=== PATIENT | female | born 1995 | race Caucasian/White ===

== ENCOUNTER 2017-12-22 19:24 | Emergency (ER) | payer BC, SELFPAY ==
[2017-12-22 19:29] VITALS: BP 121/81; PULSE 71; RESP 16; TEMP 36.9; O2SAT 100
--- NOTE | 2017-12-22 19:43 | DI.REPORT_ITS ---
SYMPTOM/DIAGNOSIS: TRAUMA RIGHT CLAVICLE: 12/22 Two views were obtained. No bony abnormality seen.
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
[2017-12-22] MEDS: Acetaminophen 500 MG TAB 1000 MG PO (19:51)
[2017-12-22] MEDS: Ibuprofen 600 MG TAB PO (19:51)
--- NOTE | 2017-12-22 20:10 | DI.VRAD_ITS ---
EXAM: XR Right Clavicle Complete, 2 or More Views CLINICAL HISTORY: 22 years old, female; Pain; Shoulder; Right TECHNIQUE: Frontal and lordotic views of the right clavicle. COMPARISON: No relevant prior studies available. FINDINGS: Bones/joints: Unremarkable. No acute fracture. No dislocation. Soft tissues: Unremarkable. IMPRESSION: Normal right clavicle x-rays. Dictated and Authenticated by: Marcelino Luong MD. Ordering:PRASANTH ARAGON MD
== END 2017-12-22 20:20 | disposition home or self-care (01) ==
PROVIDERS: Emergency Provider Emergency Medicine; PCP Emergency Medicine
DX: S40.011A Contusion of right shoulder, initial encounter (principal); V17.0XXA Pedal cycle driver injured in collision with fixed or stationary object in nontraffic accident, initial encounter; Y93.55 Activity, bike riding
CPT/HCPCS: 81025; 99284; 73000; 99283

== ENCOUNTER 2018-04-22 11:06 | Outpatient (CLI) | payer BC, SELFPAY ==
--- NOTE | 2018-04-22 09:45 | DI.RAD_ITS ---
SYMPTOM/DIAGNOSIS: RT KNEE PAIN, WORSENING PAIN S83.511D RIGHT KNEE: No fracture or joint effusion is seen. The joint spaces are well maintained. IMPRESSION: Negative right knee.
== END 2018-04-22 11:26 ==
PROVIDERS: PCP Emergency Medicine; Visit Provider Nurse Practitioner Family
DX: M25.561 Pain in right knee (principal)
CPT/HCPCS: 73562

== ENCOUNTER 2018-06-14 07:43 | Outpatient (CLI) | payer BC, SELFPAY ==
--- NOTE | 2018-06-14 08:00 | DI.RAD_ITS ---
SYMPTOMS/DIAGNOSIS: WRIST INJURY, S69.90XA RIGHT WRIST: Comparison is made with right hand dated October,. No fracture or dislocation is seen. The scaphoid view shows no evidence of a scaphoid fracture. IMPRESSION: Negative right wrist.
== END 2018-06-14 08:03 ==
PROVIDERS: PCP Emergency Medicine; Visit Provider Internal Medicine
DX: M25.531 Pain in right wrist (principal); S69.91XA Unspecified injury of right wrist, hand and finger(s), initial encounter
CPT/HCPCS: 73110

== ENCOUNTER 2018-10-18 17:17 | Outpatient (CLI) | payer BC, SELFPAY ==
--- NOTE | 2018-10-18 15:15 | DI.RAD_ITS ---
SYMPTOMS/DIAGNOSIS: RIGHT SHOULDER INJURY S/P FALL, S49.91XA, INCREASING PAIN X 2 DAYS EXAMINATION OF THE RIGHT SHOULDER: There is no evidence of a fracture or dislocation.
== END 2018-10-18 17:37 ==
PROVIDERS: PCP Emergency Medicine; Visit Provider Family Medicine
DX: S49.91XA Unspecified injury of right shoulder and upper arm, initial encounter (principal)
CPT/HCPCS: 73030

== ENCOUNTER 2019-02-13 01:14 | Outpatient (CLI) | payer OTHER, SELFPAY ==
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
== END 2019-02-13 01:34 ==
PROVIDERS: PCP Emergency Medicine; Visit Provider Nurse Practitioner Family
DX: S69.91XA Unspecified injury of right wrist, hand and finger(s), initial encounter (principal)
CPT/HCPCS: 73130

== ENCOUNTER 2019-03-20 19:08 | Outpatient (REF) | payer OTHER, SELFPAY | END 2019-03-20 19:28 | LOC: LBN 19:08 | PROVIDERS: PCP Emergency Medicine; Visit Provider Family Medicine | DX: J02.9 Acute pharyngitis, unspecified (principal) | CPT/HCPCS: 87070 ==

== ENCOUNTER 2019-03-23 10:30 | Emergency (ER) | payer OTHER, SELFPAY ==
[2019-03-23 10:33] VITALS: BP 120/71; PULSE 70; RESP 16; TEMP 37.1; O2SAT 100
--- NOTE | 2019-03-23 11:14 | ED.GENADUL_ITS ---
Discharge Plan Disposition Patient Disposition: HOME Condition: Good Discharge Details Chief Complaint: EarProblem Clinical Impression: Otitis media Primary Care Provider: Roland Pinto ED Provider: Jeannie Alvarez Home Meds and New Rx's Prescriptions: New amoxicillin 500 mg capsule 500 mg PO TID Qty: 30 RF: 0 No Action Mirena 20 mcg/24 hr (5 years) intrauterine device 1 insert IY ONCE RF: 0 ibuprofen 200 MG tablet 400 mg PO PRN RF: 0 lorazepam 0.5 MG tablet 0.5 mg PO daily prn MDD 1.0 mg Qty: 30 RF: 0 Discharge Instructions Instructions: Otitis Media (ED) Additional Instructions: Drink plenty of fluids. Use motrin or tylenol for aches and fever if needed Use antibiotic as prescribed. Increase vitamin C. If not improved in the next 3 to 5 days have reevaluation with primary care doctor. return for any worsening, concerns or alarming symptoms sooner if needed Medical Decision Making Very pleasant 23-year-old patient who presents for complaints of ear pain after 1 week of viral symptoms. Onset ear pain last night. Patient denies any obvious drainage. Denies fevers or chills. Nasal congestion present, improving sore throat throughout the week. No associated voice change or trismus. Patient reports cough without associated difficulty breathing shortness of breath or wheezing. Breath sounds are clear. On exam patient has a left-sided otitis media. Patient denies any associated abdominal pain. Discussed possibility of mono however patient feels very unlikely that she has mono and declines testing at this time would prefer antibiotic treatment and reevaluation if not improving. Conservative treatments discussed. Patient agrees with plan of care. The patient was stable and requested discharge. Prior to discharge, my usual and customary return precautions were reviewed with the patient - this included follow-up instructions and reasons to return to the Emergency Department if conditions worsens, does not improve as expected, or other new concerns arise. HPI General Date/Time Provider Initiated Documentation: 03/23/19 10:46 . HPI Narrative: 23-year-old very pleasant patient presents to the emergency room for complaints of left ear pain which began last night when sleeping. Patient reports 1 week of viral symptoms specifically nasal congestion, sore throat and mild cough. Patient reports throat pain is improving. Patient with persistent nasal congestion but denies associated sinus pain or pressure. Patient reports ear pain is worse when laying flat or when leaning forward. Patient denies associated dizziness. Patient denies nausea, vomiting. She does report mild loose stools but no associated abdominal pain. Patient reports mild cough which is nonproductive. No associated difficulty breathing shortness of breath or wheezing. Denies measured fever or chills Related Data Home Medications Medication Instructions Recorded Confirmed ibuprofen 400 mg PO PRN tab-cap 04/04/14 03/23/19 lorazepam 0.5 mg PO daily prn #30 tab-cap 08/17/17 03/23/19 MDD 1.0 mg levonorgestrel 20 mcg/24 hours (5 1 insert IY ONCE 04/05/18 03/23/19 yrs) 52 mg intrauterine device amoxicillin 500 mg PO TID #30 cap 03/23/19 Previous Rx's Medication Instructions Recorded lorazepam 0.5 mg PO daily prn #30 tab-cap 08/17/17 MDD 1.0 mg amoxicillin 500 mg PO TID #30 cap 03/23/19 Allergies Allergy/AdvReac Type Severity Reaction Status Date / Time No Known Allergies Allergy Verified 03/23/19 10:39 General Stated Complaint: EarProblem [place]ROE: 4 Review of Systems All systems reviewed & are unremarkable except as noted in HPI and below Constitutional Constitutional: Denies chills, Reports fatigue, Denies fever(s), Reports headache(s) and Denies malaise ENT Ears, Nose, Mouth, and Throat: Reports otalgia, Reports headache(s), Reports nasal congestion, Reports nasal discharge, Denies sinus pain, Denies sinus pressure, Reports sore throat and Denies throat swelling Respiratory Respiratory: Reports cough, Denies pain on inspiration, Denies pain with cough and Denies wheezing Gastrointestinal Gastrointestinal: Denies abdominal pain, Reports diarrhea, Denies nausea and Denies vomiting Neurologic Neurologic: Reports headache(s) Endocrine Endocrine: Reports fatigue Allergic/Immunologic Allergic/Immunologic: Denies throat swelling and Denies wheezing [facility] Social History Smoking/Tobacco Use Status: Never Alcohol Intake: current Alcohol Intake frequency: holidays/special occasions only Alcohol type: beer Drug use: Never Do you feel safe at home: Yes Do you feel safe in your relationship?: Yes Exam Narrative Exam Narrative: CONST: Healthy appearing patient, in no acute distress. Well hydrated. Alert and alert. HENMT: Head nomocephalic, normal to inspection. Atraumatic. Hearing grossly normal. External ear canal no erythema or swelling. TM normal on the right. Left TM with bulging, effusion and erythema. Nose normal to inspection. No rhinnorhea. Normal facial exam. Oral mucosa normal. Tounge normal. Dentition normal. Erythema posterior oropharynx. Mild tonsillar exudate. Uvula midline. EYES: General normal appearance. Alignment normal. Eyelids normal. Conjunctiva normal. Sclera normal. PERRL. NECK: Normal visual inspection. FROM. Cervical lymphadenopathy. Trachea midline. No Midline tenderness. CHEST: Normal insepection of the chest. RESP: Normal respiratory effort. Speaking full sentences. No cough. No wheezing. No retractions. Clear to auscaltation. Breath sound equal and present bilaterally. CARDIO: No JVD. Normal PMI. Regular Rate. Regular Rhythm. Normal peripheral pulses. Course Vital Signs Vital signs: Vital Signs Temperature 37.1 C 03/23/19 10:33 Pulse 70 03/23/19 10:33 Respiratory Rate 16 03/23/19 10:33 Blood Pressure 120/71 03/23/19 10:33 Pulse Oximetry 100 03/23/19 10:33 Temperature 37.1 C 03/23/19 10:33 Temperature Source Temporal Artery Scan 03/23/19 10:33 Pulse 70 03/23/19 10:33 Respiratory Rate 16 03/23/19 10:33 Respiratory Effort Non-Labored 03/23/19 10:36 Blood Pressure 120/71 03/23/19 10:33 Blood Pressure Position Sitting 03/23/19 10:33 Pulse Oximetry 100 03/23/19 10:33 Oxygen Delivery Method Room Air 03/23/19 10:33 Oxygen Flow Rate 0 03/23/19 10:33 Pain Level 6 03/23/19 10:36
[2019-03-23 11:22] VITALS: BP 120/71; PULSE 70; RESP 16; TEMP 37.1; O2SAT 100
== END 2019-03-23 11:19 | disposition home or self-care (01) ==
PROVIDERS: Emergency Provider Physician Assistant; PCP Emergency Medicine
DX: H66.92 Otitis media, unspecified, left ear (principal)
CPT/HCPCS: 99283

== ENCOUNTER 2019-07-21 01:39 | Emergency (ER) | payer OTHER, SELFPAY ==
[2019-07-21 01:43] VITALS: BP 143/82; PULSE 93; RESP 16; TEMP 37.3; O2SAT 98
--- NOTE | 2019-07-21 01:48 | ED.GENADUL_ITS ---
Discharge Plan Disposition Patient Disposition: HOME Condition: Good Discharge Details Chief Complaint: Orthopedic Clinical Impression: Dislocation of shoulder, right, closed Primary Care Provider: Roland Pinto ED Provider: Matt Hobson Home Meds and New Rx's Prescriptions: No Action Mirena 20 mcg/24 hr (5 years) intrauterine device 1 insert IY ONCE RF: 0 ibuprofen 200 MG tablet 400 mg PO PRN RF: 0 Discharge Instructions Instructions: Shoulder Dislocation (ED) Additional Instructions: As your shoulder is now in place, I would keep it in the sling to make sure it stays well rested to avoid any more strain. After 24 hours I feel it would be reasonable to stop using the sling. Please make sure that you are moving your shoulder regularly to help keep it loose prevent it from getting adhesive capsulitis. Please take Tylenol and Motrin and ice as needed for pain or swelling. If you notice any worsening of your symptoms, or any new symptoms such as vomiting, diarrhea, fever, chills, shortness of breath, chest pain, numbness, weakness, or fainting , please return immediately to the emergency department for reevaluation. Please follow up with your primary care provider as soon as possible for reassessment and reevaluation. As always, it was a pleasure participating in your medical care today. Referrals: Roland Pinto, [Primary Care Provider] - Medical Decision Making 23-year-old female who is left-hand dominant who presents with right shoulder pain. 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 This evening at around midnight she was out sledding, fell off, and hit her right shoulder. She has had continued pain in her shoulder since then is come for further evaluation. Exam demonstrates slightly inferior displaced right humerus, no evidence of neurovascular compromise. Pain with abduction and external rotation. We will get a shoulder x-ray for further evaluation. The patient does not want anything additional for pain at this time. 2:50 AM Patient's x-ray results per virtual radiology showed no evidence of dislocation, however clinically she does appear to have a clinical dislocation. I did place her in the prone position with her right arm hanging over the bed weighted with a liter bag of lactated Ringer's. She was held in this position for 15 minutes, after which she demonstrated notable relax meant she was sat upright, traction was applied to the arm and there was a notable funk and the right shoulder relocated well. After this she showed no inhibition of movement of the arm, she demonstrated normal range of motion, pain was notably relieved. I feel that the patient has had reduction of her right shoulder. Repeat neurovascular exam demonstrates no abnormalities. With a complete return to her baseline movement, and no evidence of fracture on initial x-ray there is no indication for additional radiation exposure at this time. She demonstrates clear resolution of the shoulder dislocation. At this time I feel she can be discharged home. Discussed red flags which to return. She will be given a sling for comfort for the time being. I have extensively reviewed the treatment plan and discharge instructions with the patient. I have addressed all patient concerns at this time. The patient was made aware of what symptoms to monitor for that would warrant a return to the emergency department. Discussed the plan with the patient, they demonstrate verbal understanding and agreement with our assessment and plan at this time. FINDINGS: Bones/joints: Normal. Soft tissues: Normal. IMPRESSION: No acute findings. Thank you for allowing us to participate in the care of your patient. Dictated and Authenticated by: Kan Leon [facility] General Date/Time Provider Initiated Documentation: 07/21/19 01:40 . HPI Narrative: 23-year-old female with a past medical history of multiple previous right shoulder dislocation who is left-hand dominant presents for right shoulder pain. Patient states that she was sledding an hour ago at around midnight when she fell off the slide and hit her right shoulder. She feels like she may have dislocated and does not feel that it is back to its normal. Aside for the pain in her right shoulder she denies any other pain or chest head neck the remainder of her arm. She denies any numbness or tingling. She has no other complaints at this time. Related Data Home Medications Medication Instructions Recorded Confirmed ibuprofen 400 mg PO PRN tab-cap 04/04/14 03/23/19 levonorgestrel 20 mcg/24 hours (5 1 insert IY ONCE 04/05/18 03/23/19 yrs) 52 mg intrauterine device Allergies Allergy/AdvReac Type Severity Reaction Status Date / Time No Known Allergies Allergy Verified 03/23/19 10:39 General Stated Complaint: Orthopedic [place]E: 4 Review of Systems All systems reviewed & are unremarkable except as noted in HPI and below [facility] Medical History (Updated 07/21/19 @ 02:49 by Matt Hobson DO) No acute medical problems (Acute) Social History Smoking/Tobacco Use Status: Never Alcohol Intake: current Alcohol Intake frequency: holidays/special occasions only Alcohol type: beer Drug use: Never Do you feel safe at home: Yes Do you feel safe in your relationship?: Yes Exam Narrative Exam Narrative: 1.Const: Well-nourished, Well-developed, appearing stated age 2.Eyes: PERRL, no conjunctival injection, and symmetrical lids. 3.ENT: Atraumatic external nose and ears. Moist MM. Neck: Symmetric, trachea midline, No thyromegaly. 4.CVS: +S1/S2, No murmurs or gallops. Peripheral pulses 2+ and equal in all extremities. Brisk capillary refill in all extremities. 5.RESP: Unlabored respiratory effort. Clear to auscultation bilaterally. No wheezes rales or rhonchi 6.GI: Soft, Nontender/Nondistended, No hepatosplenomegaly. No guarding or rebound. 7.MSK: Right shoulder demonstrates similar findings when compared to the left, however it does appear to be slightly more inferiorly located for the humeral head compared to the left. Mild tenderness over the AC joint, notable pain with abduction, as well as external rotation. Sensation intact throughout. Radial pulse +2 bilaterally. Good sensation over the axillary region, normal two-point discrimination on all fingers. Normal loader strength and movement of the elbow. 8.Skin: Warm, Dry. No rashes or lesions. 9.Neuro: consulting group analyst II-XII grossly intact. Sensation grossly intact, no focal neurologic deficits. 10.Psych: (AAO) x3. Appropriate mood and affect Course Vital Signs Vital signs: Vital Signs Temperature 37.3 C 07/21/19 01:43 Pulse 93 H 07/21/19 01:43 Respiratory Rate 16 07/21/19 01:43 Blood Pressure 143/82 H 07/21/19 01:43 Pulse Oximetry 98 07/21/19 01:43 Temperature 37.3 C 07/21/19 01:43 Temperature Source Skin 07/21/19 01:43 Pulse 93 H 07/21/19 01:43 Respiratory Rate 16 07/21/19 01:43 Blood Pressure 143/82 H 07/21/19 01:43 Pulse Oximetry 98 07/21/19 01:43 Pain Level 6 07/21/19 01:43 Procedures Orthopedic Joint Reduction Joint #1: Time Out Performed: Yes Side: right Joint Reduction Location: shoulder Analgesia: none Shoulder Technique Used (if applicable): traction/counter-traction, scapula manipulation and external rotation Post-reduction neuro exam: intact Post-reduction vascular: intact Patient Tolerated Procedure: well
--- NOTE | 2019-07-21 02:05 | DI.RAD_ITS ---
EXAM: XR SHOULDER RT COMPLETE 2+V CLINICAL HISTORY: right shoulder pain, suspect dislocation. TECHNIQUE: 2D digital imaging was performed. COMPARISON: XR shoulder RT complete 2+V from 10/18/2018 FINDINGS: BONES: No acute fracture is present. No bony destructive lesion is seen. JOINTS: No dislocation present. SOFT TISSUE: Normal. IMPRESSION: Unremarkable radiographs of the right shoulder. DATA REPOSITORY: RADIATION DOSE DELIVERED:
--- NOTE | 2019-07-21 02:09 | DI.VRAD_ITS ---
PROCEDURE INFORMATION: Exam: XR Right Shoulder Exam date and time: 07/21/2019 1:46 AM Age: 23 years old Clinical indication: Injury or trauma; Initial encounter; Blunt trauma (contusions or hematomas; Right; Injury date: 07/20/19; Injury details: Sledding injury, RT shoulder pain, ? dislocation TECHNIQUE: Imaging protocol: XR Right shoulder. Views: 2 or more views. COMPARISON: CR XR shoulder RT complete 2+V 10/18/2018 3:21 PM FINDINGS: Bones/joints: Normal. Soft tissues: Normal. IMPRESSION: No acute findings. Dictated and Authenticated by: Kan Leon MD. Ordering:PAWEL Gutierrez MD
== END 2019-07-21 02:56 | disposition home or self-care (01) ==
PROVIDERS: Emergency Provider Student in an Organized Health Care Education/Training Program; PCP Emergency Medicine
DX: S43.034A Inferior dislocation of right humerus, initial encounter (principal); V00.221A Fall from sled, initial encounter
CPT/HCPCS: 23650; 73030; L3650

== ENCOUNTER 2019-12-22 13:51 | Outpatient (CLI) | payer OTHER, SELFPAY ==
--- NOTE | 2019-12-22 13:00 | DI.RAD_ITS ---
EXAM: XR FOOT RT COMPLETE CLINICAL HISTORY: pain base of RT 5th metatarsal, swelling x months, M79.671. TECHNIQUE: 2D digital imaging was performed. COMPARISON: No exams were available for comparison FINDINGS: BONES: No acute fracture is present. No bony destructive lesion is seen. JOINTS: No dislocation present. SOFT TISSUE: Normal. IMPRESSION: Unremarkable radiographs of the right foot. DATA REPOSITORY: RADIATION DOSE DELIVERED:
== END 2019-12-22 14:11 ==
PROVIDERS: PCP Emergency Medicine; Visit Provider Physician Assistant
DX: M79.671 Pain in right foot (principal)
CPT/HCPCS: 73630

== ENCOUNTER 2020-01-30 01:07 | Outpatient (CLI) | payer OTHER, SELFPAY ==
--- NOTE | 2020-01-30 07:15 | DI.MRI_ITS ---
EXAM: MR LOWER EXTREMITY RT WO CLINICAL HISTORY: 5th metatarsal stress fracture and/or peroneal TENDONITIS,M84.374A,M76.71. TECHNIQUE: Multiplanar multisequence MRI was performed. COMPARISON: MR MRI - L LOWER EXT WO CONTRAST from 10/22/2010 CR XR FOOT RT COMPLETE from 12/22/2019 FINDINGS: Bones: Unremarkable. No evidence of an occult fracture or avascular necrosis. Ligaments: Tibial fibular ligaments: Unremarkable Talofibular and calcaneal fibular ligaments: Unremarkable. Deltoid ligaments: Unremarkable. Tendons: Anterior ankle tendons: Unremarkable. Medial ankle tendons: Unremarkable. Perennial tendons: The peroneus brevis tendon is unremarkable. The peroneus longus tendon is somewhat indistinct as it courses adjacent to the calcaneal cuboid joint but is otherwise unremarkable. No ev idence of a tear. Achilles tendon: Unremarkable as visualized. There is a small amount of fluid in the retrocalcaneal b ursa. Plantar fascia: Unremarkable. Muscles: Unremarkable. Soft tissues: Mild soft tissue edema is seen along the plantar and lateral aspect of the 5th MTP join t. IMPRESSION: 1. No evidence of an occult fracture or avascular necrosis. 2. Unremarkable peroneus brevis tendon and insertion site. 3. Mild subcutaneous edema adjacent to the 5th MTP joint. 4. Indistinct appearance of the peroneus longus tendon adjacent to the calcaneocuboid joint. No evide nce of a tear. Mild tendinopathy cannot be excluded. DATA REPOSITORY:
== END 2020-01-30 01:27 ==
PROVIDERS: PCP Emergency Medicine; Visit Provider Student in an Organized Health Care Education/Training Program
DX: R60.0 Localized edema (principal); M76.71 Peroneal tendinitis, right leg; M84.374A Stress fracture, right foot, initial encounter for fracture
CPT/HCPCS: 73718

== ENCOUNTER 2020-02-21 15:58 | Outpatient (CLI) | payer OTHER, SELFPAY ==
--- NOTE | 2020-02-21 15:30 | DI.RAD_ITS ---
EXAM: XR HAND RT COMPLETE CLINICAL HISTORY: right hand injury. TECHNIQUE: 2D digital imaging was performed. COMPARISON: CR XR HAND RT COMPLETE from 02/13/2019 FINDINGS: BONES: No acute fracture is present. No bony destructive lesion is seen. JOINTS: No dislocation present. SOFT TISSUE: Normal. IMPRESSION: Unremarkable radiographs of the right hand. DATA REPOSITORY: RADIATION DOSE DELIVERED:
== END 2020-02-21 16:18 ==
PROVIDERS: PCP Emergency Medicine; Visit Provider Student in an Organized Health Care Education/Training Program
DX: S69.81XA Other specified injuries of right wrist, hand and finger(s), initial encounter (principal)
CPT/HCPCS: 73130

== ENCOUNTER 2020-11-07 03:07 | Outpatient (CLI) | payer OTHER, SELFPAY ==
--- NOTE | 2020-11-07 08:00 | DI.RAD_ITS ---
Exam(s) XR SHOULDER RT COMPLETE 2+V EXAM: XR SHOULDER RT COMPLETE 2+V CLINICAL HISTORY: pain, CHRONIC PAIN, M25.511, G89.29. TECHNIQUE: 2D digital imaging was performed. COMPARISON: CR,XR XR SHOULDER RT COMPLETE 2+V from 07/21/2019 FINDINGS: There is no evidence of fracture or dislocation no abnormal soft tissue calcifications. The subacrom ial space appears unremarkable. No degenerative changes evident in the glenohumeral and AC joints. Bone density is normal. No osseous lesions. No evidence of os acromiale. IMPRESSION: No significant radiographic findings in the right shoulder. DATA REPOSITORY: RADIATION DOSE DELIVERED:
== END 2020-11-07 03:27 ==
PROVIDERS: PCP Emergency Medicine; Visit Provider Nurse Practitioner Family
DX: G89.29 Other chronic pain (principal); M25.511 Pain in right shoulder
CPT/HCPCS: 73030

== ENCOUNTER 2020-12-18 20:38 | Outpatient (REF) | payer BC, SELFPAY ==
[2020-12-20 15:39] LABS: COVID-19 RT-PCR UVMMC Result Negative (Negative)
== END 2020-12-18 20:39 | disposition home or self-care (01) ==
LOC: LBN 20:38
PROVIDERS: PCP Emergency Medicine; Visit Provider Physician Assistant Medical
DX: J02.9 Acute pharyngitis, unspecified (principal); J06.9 Acute upper respiratory infection, unspecified; Z20.822 Contact with and (suspected) exposure to COVID-19
CPT/HCPCS: U0003; 87070

== ENCOUNTER 2020-12-21 10:45 | Emergency (ER) | payer BC, SELFPAY ==
[2020-12-21 11:29] VITALS: BP 114/73; PULSE 71; RESP 16; O2SAT 99
--- NOTE | 2020-12-21 11:44 | ED.GENADUL_ITS ---
Discharge Plan Disposition Patient Disposition: HOME Condition: Stable Discharge Details Clinical Impression: Exudative pharyngitis Primary Care Provider: Roland Pinto ED Provider: Treasure Combs Home Meds and New Rx's Prescriptions: New amoxicillin 500 mg capsule 500 mg PO BID 10 Days Qty: 20 RF: 0 Continued lorazepam [Ativan] 1 mg tablet 1 mg PO QHS PRN (Reason: sleep) Qty: 7 RF: 0 Mirena 20 mcg/24 hr (5 years) intrauterine device 1 insert IY ONCE RF: 0 ibuprofen 200 MG tablet 400 mg PO PRN RF: 0 Discharge Instructions Instructions: Pharyngitis (ED) Additional Instructions: Your strep test today was negative. It is suspected that you have another type of strep throat. Your throat culture is pending and you can call the hospital for this result this week. Drink plenty of fluids and get plenty of rest. Alternate tylenol and motrin as needed and directed for pain. Your antibiotic prescription has been sent electronically to your pharmacy. Call the pharmacy to make sure your prescription is ready before pickup. Take the prescription as directed until finished. Follow-up with your primary care doctor in 1 week. Follow-up with ENT for reevaluation and discussion regarding your recurrent throat infections. Return to the emergency department with any worsening or new concerning symptoms such as fever, increased pain, inability to swallow or any other concerns. Discharge Data Discharge Physician: Treasure Combs Medical Decision Making 25-year-old female presents with sore throat for the past 3 days, worse this morning. Last dose of prednisone this morning after seen at urgent care with a negative stress test this week. She has bilateral tonsillar edema and exudates, worse on right side with no evidence of peritonsillar abscess or mass. Uvula midline. She has bilateral anterior cervical lymphadenopathy but no trismus, drooling or submandibular swelling. Lungs clear. She appears nontoxic. No meningeal signs. Strep test today negative. Suspect presentation appears consistent with strep pharyngitis, maybe B, C or G. Mononucleosis also another potential diagnosis, but she has no significant fatigue, symptoms slightly worse on right side, and she has no hepatosplenomegaly so this seems less likely. We will treat for presumed strep. She was given a dose of Decadron p.o. and amoxicillin here. Prescription sent electronically to her pharmacy. She is advised to return here immediately if she develops any worsening or concerning symptoms such as persistent fevers, difficulty swallowing or any other concerns. Medical Records Medical records reviewed: Yes I reviewed the patient's medical records. HPI General Mode of arrival: ambulatory . Date/Time Provider Initiated Documentation: 12/21/20 11:06 . Limitations to Documentation: no limitations . Information obtained by: patient . HPI Narrative: Patient is a 25-year-old female who presents with sore throat over the past 2 days, worse this morning. Patient states she had cold symptoms last month with a negative Covid and then this resolved. She states of the last several days she developed sore throat which is now worse on the right side and worse this morning. She states she was seen at urgent care this week and had a negative strep and was placed on prednisone which she has been taking 20 mg once daily, last dose this morning. She denies any relief with the steroids. She has been taking Tylenol and Motrin with pain relief. She denies any fever, neck pain, cough or difficulty breathing. Related Data Home Medications Medication Instructions Recorded Confirmed ibuprofen 400 mg PO PRN tab-cap 04/04/14 12/21/20 levonorgestrel 20 mcg/24 hours (6 1 insert IY ONCE 04/05/18 12/21/20 yrs) 52 mg intrauterine device lorazepam 1 mg tablet 1 mg PO QHS PRN #7 tab 07/19/20 12/21/20 amoxicillin 500 mg PO BID 10 Days #20 cap 12/21/20 Previous Rx's Medication Instructions Recorded lorazepam 1 mg tablet 1 mg PO QHS PRN #7 tab 07/19/20 amoxicillin 500 mg PO BID 10 Days #20 cap 12/21/20 Allergies Allergy/AdvReac Type Severity Reaction Status Date / Time No Known Allergies Allergy Verified 12/21/20 11:32 General Stated Complaint: Sorethroat MONROE: 4 Review of Systems All systems reviewed & are unremarkable except as noted in HPI and below Constitutional Constitutional: Reports as per HPI, Denies chills and Denies fever(s) Eyes Eyes: Denies blurry vision ENT Ears, Nose, Mouth, and Throat: Denies dizziness, Reports sore throat and Denies throat swelling Cardiovascular Cardiovascular: Denies chest pain and Denies dyspnea Respiratory Respiratory: Denies cough and Denies dyspnea Gastrointestinal Gastrointestinal: Denies abdominal pain, Denies diarrhea and Denies vomiting Genitourinary Genitourinary: Denies hematuria and Denies dysuria Musculoskeletal Musculoskeletal: Denies back pain and Denies numbness Integumentary/Breasts Skin/Breast: Denies lesions and Denies rash Neurologic Neurologic: Denies dizziness, Denies localized weakness and Denies numbness Allergic/Immunologic Allergic/Immunologic: Denies throat swelling [facility] Medical History (Updated 12/21/20 @ 12:15 by Treasure Combs DO) Metatarsal stress fracture of right foot No acute medical problems Peroneal tendonitis of right lower leg Social History Smoking/Tobacco Use Status: Never Smoking risk assessment performed?: Yes Alcohol Intake: current Alcohol Intake frequency: a few times a week Alcohol type: beer Drug use: Daily Substance use type: marijuana Current gender identity: female Do you feel safe at home: Yes Do you feel safe in your relationship?: Yes Exam Const General: cooperative, healthy appearing and no acute distress HENMT Head: normal to inspection Ears: hearing grossly normal bilaterally and external ears normal General nose exam: external nose normal Mouth: oral mucosae normal Throat: no peritonsillar masses and posterior oropharynx abnormal (worse on R side) edema, erythema and exudates Eyes General: appearance normal, both eyes and all related structures Neck Neck: normal visual inspection and lymphadenopathy (b/l anterior cervical) Resp Effort & Inspection: normal respiratory effort and able to speak in complete sentences Auscultation: clear to auscultation bilaterally Cardio Rate: regular rate Rhythm: regular rhythm Skin General skin exam: no rashes or lesions noted Neuro General: patient alert, patient awake and patient oriented x3 Motor: muscle tone normal throughout Extrem General: normal to inspection and full ROM Psych Appearance: grossly normal Affect: normal affect Course Vital Signs Vital signs: Vital Signs Pulse 71 12/21/20 11:29 Respiratory Rate 16 12/21/20 11:29 Blood Pressure 114/73 12/21/20 11:29 Pulse Oximetry 99 12/21/20 11:29 Pulse 71 12/21/20 11:29 Respiratory Rate 16 12/21/20 11:29 Respiratory Effort Non-Labored 12/21/20 11:33 Blood Pressure 114/73 12/21/20 11:29 Blood Pressure Position Sitting 12/21/20 11:29 Pulse Oximetry 99 12/21/20 11:29 Oxygen Delivery Method Room Air 12/21/20 11:29 Oxygen Flow Rate 0 12/21/20 11:29
[2020-12-21] MEDS: Amoxicillin 500 MG CAP PO (12:50)
[2020-12-21] MEDS: Dexamethasone 10 MG/ML VIAL PO (12:50)
== END 2020-12-21 13:02 | disposition home or self-care (01) ==
PROVIDERS: Emergency Provider Physician Assistant; PCP Emergency Medicine
DX: J02.9 Acute pharyngitis, unspecified (principal)
CPT/HCPCS: 81025; 87880; 99283; 87081; J1100

== ENCOUNTER 2020-12-22 19:48 | Emergency (ER) | payer BC, SELFPAY ==
[2020-12-22 20:02] VITALS: BP 132/84; PULSE 78; RESP 18; TEMP 36.9; O2SAT 100
--- NOTE | 2020-12-22 20:25 | W.ED.GENAD ---
Discharge Plan Disposition Patient Disposition: HOME Condition: Good Discharge Details Clinical Impression: Mononucleosis, Acute tonsillitis Primary Care Provider: Roland Pinto ED Provider: Matt Hobson Home Meds and New Rx's Prescriptions: New prednisone 20 mg tablet 20 mg PO DAILY Qty: 42 RF: 0 Continued lorazepam [Ativan] 1 mg tablet 1 mg PO QHS PRN (Reason: sleep) Qty: 7 RF: 0 Mirena 20 mcg/24 hr (5 years) intrauterine device 1 insert IY ONCE RF: 0 ibuprofen 200 MG tablet 400 mg PO PRN RF: 0 Discontinued amoxicillin 500 mg capsule 500 mg PO BID 10 Days Qty: 20 RF: 0 Discharge Instructions Instructions: Mononucleosis (ED) Additional Instructions: At this time you have mono. This can be a very long/prolonged process. Please stop taking the antibiotic after tomorrow. Please take 800 mg of ibuprofen every 6 hours and 1000 mg of Tylenol every 6 hours to help with pain swelling or soreness. These are the maximum doses. The dexamethasone that you were given yesterday should last 3 days. Please wait for the next 48 hours and if your symptoms are unchanged or improving do not take the steroids. If you notice worsening of your symptoms then at that point you should take the steroids that I have prescribed. Remind you that this will be a prolonged dose, that needs to taper secondary to the amount of steroids (6 days equivalent) that you have been on so far from the urgent care doctor and the ER. Also please keep in mind that when you have mono you can have enlargement of your spleen. Avoid any activities that could cause significant trauma to your flank which could cause pain and/or rupture to your spleen. If you notice any worsening of your symptoms, or any new symptoms such as vomiting, diarrhea, fever, chills, shortness of breath, chest pain, numbness, weakness, or fainting , please return immediately to the emergency department for reevaluation. Please follow up with your primary care provider as soon as possible for reassessment and reevaluation. As always, it was a pleasure participating in your medical care today. Referrals: Roland Pinto, [Primary Care Provider] - Medical Decision Making 25-year-old female with past medical history of repeat dislocating shoulders, who presents for sore throat. Patient was seen at the urgent care for sore throat 4 days ago, she was started on steroid 3 days total at that time. She then presented here to the emergency department yesterday where her strep test was negative, she was given a dose of Decadron, recommended for continued NSAIDs at home and started on amoxicillin. She presents again today stating that the pain and swelling has continued but not significantly worsened but has not improved either. She denies any fever or chills. She denies any severe fatigue, cough, shortness of breath, difficulty swallowing or drinking or breathing. She denies any exposure to anyone for mono recently, however she is in the presence of multiple young people often secondary to the nature of her work. No other complaints at this time. No other modifying factors. Physical exam demonstrates an enlarged right-sided tonsil with tonsillar exudate. No signs of airway compromise whatsoever, tonsils are grade 2, certainly not touching at all. Left tonsil is actually pretty unremarkable. No significant lymphadenopathy in the neck otherwise. No splenomegaly on exam at this time clinically. We did do a Monospot test, and this is positive. She is a second positive mono today, and I suspect there is a bit of an increase locally. With the positive mono, and the negative strep test, this may certainly be an atypical bacterial pathogen but I feel it less likely with a positive mono test. Will recommend stopping the amoxicillin tomorrow, she is technically had 6 days of steroids, with 3 days of steroids from the urgent care, and Decadron which usually last about 48 to 72 hours here. She would not be a candidate for just a regular burst secondary to the concern for adrenal complication. At this time I will recommend holding off on the amoxicillin, maximizing her Tylenol and Motrin doses. Then if after 48 to 72 hours from now she still has worsening of her symptoms then she should take the prolonged tapered steroid dose. Discussed red flags which to return. Discussed the importance of avoiding trauma to the spleen. I have extensively reviewed the treatment plan and discharge instructions with the patient. I have addressed all patient concerns at this time. The patient was made aware of what symptoms to monitor for that would warrant a return to the emergency department. Discussed the plan with the patient, they demonstrate verbal understanding and agreement with our assessment and plan at this time. The documentation in this chart was dictated using Stampt dictation software. Please excuse any dictation errors. HPI General Date/Time Provider Initiated Documentation: 12/22/20 19:49. HPI Narrative: 25-year-old female with past medical history of repeat dislocating shoulders, who presents for sore throat. Patient was seen at the urgent care for sore throat 4 days ago, she was started on steroid 3 days total at that time. She then presented here to the emergency department yesterday where her strep test was negative, she was given a dose of Decadron, recommended for continued NSAIDs at home and started on amoxicillin. She presents again today stating that the pain and swelling has continued but not significantly worsened but has not improved either. She denies any fever or chills. She denies any severe fatigue, cough, shortness of breath, difficulty swallowing or drinking or breathing. She denies any exposure to anyone for mono recently, however she is in the presence of multiple young people often secondary to the nature of her work. No other complaints at this time. No other modifying factors. Related Data Home Medications Medication Instructions Recorded Confirmed ibuprofen 400 mg PO PRN tab-cap 04/04/14 12/21/20 levonorgestrel 20 mcg/24 hours (6 1 insert IY ONCE 04/05/18 12/21/20 yrs) 52 mg intrauterine device lorazepam 1 mg tablet 1 mg PO QHS PRN #7 tab 07/19/20 12/21/20 prednisone 20 mg PO DAILY #42 tab 12/22/20 Previous Rx's Medication Instructions Recorded lorazepam 1 mg tablet 1 mg PO QHS PRN #7 tab 07/19/20 prednisone 20 mg PO DAILY #42 tab 12/22/20 Allergies Allergy/AdvReac Type Severity Reaction Status Date / Time No Known Allergies Allergy Verified 12/22/20 20:21 General Stated Complaint: Sorethroat MONROE: 4 Review of Systems All systems reviewed & are unremarkable except as noted in HPI and below PFSH Medical History Metatarsal stress fracture of right foot No acute medical problems Peroneal tendonitis of right lower leg Social History Smoking/Tobacco Use Status: Never Smoking risk assessment performed?: Yes Alcohol Intake: current Alcohol Intake frequency: a few times a week Alcohol type: beer Drug use: Daily Substance use type: marijuana Current gender identity: female Do you feel safe at home: Yes Do you feel safe in your relationship?: Yes Exam Narrative Exam Narrative: 1.Const: Well-nourished, Well-developed, appearing stated age 2.Eyes: PERRL, no conjunctival injection, and symmetrical lids. 3.ENT: Atraumatic external nose and ears. Moist MM. Neck: Symmetric, trachea midline, No thyromegaly. Posterior oropharynx demonstrates mild enlargement of the right tonsil, mild exudate. No tonsilloliths. No peritonsillar abscess. No edema in her throat. Left tonsil is normal in appearance. Tonsils at this time are grade 2. They are not touching, notable space in between, no evidence of airway compromise or compromise in the posterior oropharynx whatsoever. Patient demonstrates good movement of cervical neck. There is no nuchal rigidity, no nuchal tenderness. Patient is able to flex the neck without any difficulty or significant pain. Negative Kernig's and Brudzinski sign. 4.CVS: +S1/S2, No murmurs or gallops. Peripheral pulses 2+ and equal in all extremities. Brisk capillary refill in all extremities. 5.RESP: Unlabored respiratory effort. Clear to auscultation bilaterally. No wheezes rales or rhonchi 6.GI: Soft, Nontender/Nondistended, No hepatosplenomegaly. No guarding or rebound. 7.MSK: Normocephalic/Atraumatic, Extremities w/o deformity or ttp No cyanosis or clubbing, Normal movement of all extremities 8.Skin: Warm, Dry. No rashes or lesions. 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 Sensation grossly intact, no focal neurologic deficits. 10.Psych: (AAO) x3. Appropriate mood and affect Course Vital Signs Vital signs: Vital Signs Temperature 36.9 C 12/22/20 20:02 Pulse 78 12/22/20 20:02 Respiratory Rate 18 12/22/20 20:02 Blood Pressure 132/84 12/22/20 20:02 Pulse Oximetry 100 12/22/20 20:02 Temperature 36.9 C 12/22/20 20:02 Pulse 78 12/22/20 20:02 Respiratory Rate 18 12/22/20 20:02 Respiratory Effort 12/22/20 20:19 Blood Pressure 132/84 12/22/20 20:02 Pulse Oximetry 100 12/22/20 20:02 Pain Level 8 12/22/20 20:02
[2020-12-22 20:39] LABS: Mono Screening POSITIVE (Negative)
== END 2020-12-22 21:28 | disposition home or self-care (01) ==
PROVIDERS: Emergency Provider Student in an Organized Health Care Education/Training Program; PCP Emergency Medicine
DX: B27.90 Infectious mononucleosis, unspecified without complication (principal); J03.90 Acute tonsillitis, unspecified
CPT/HCPCS: 36416; 99283; 86308

== ENCOUNTER 2021-03-31 00:50 | Outpatient (CLI) | payer BC, SELFPAY ==
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
== END 2021-03-31 01:10 ==
PROVIDERS: PCP Emergency Medicine; Visit Provider Nurse Practitioner Acute Care
DX: S43.431A Superior glenoid labrum lesion of right shoulder, initial encounter (principal); M25.511 Pain in right shoulder; X58.XXXA Exposure to other specified factors, initial encounter
CPT/HCPCS: 73221

== ENCOUNTER 2021-07-12 10:03 | Outpatient (CLI) | payer BC, SELFPAY ==
--- NOTE | 2021-07-12 10:08 | DI.RAD_ITS ---
Exam(s) XR WRIST RT COMPLETE EXAM: XR WRIST RT COMPLETE CLINICAL HISTORY: RT wrist pain, r/o fracture TECHNIQUE: COMPARISON: No exams were available for comparison FINDINGS: Three views were obtained. There is no evidence of acute fracture or dislocation. IMPRESSION: RADIATION DOSE DELIVERED: Total DLP
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
== END 2021-07-12 10:23 ==
PROVIDERS: PCP Family Medicine; Visit Provider Nurse Practitioner Family
DX: M25.531 Pain in right wrist (principal)
CPT/HCPCS: 73110

== ENCOUNTER 2021-07-30 10:13 | Outpatient (CLI) | payer BC, SELFPAY ==
--- NOTE | 2021-07-30 09:30 | DI.RAD_ITS ---
Exam(s) XR WRIST RT COMPL NAVICULAR EXAM: XR WRIST RT COMPL NAVICULAR CLINICAL HISTORY: right wrist injury. TECHNIQUE: 2D digital imaging was performed. COMPARISON: CR,XR XR WRIST RT COMPLETE from 07/12/2021 FINDINGS: Four views There is again no evidence of fracture or carpal dislocation. No significant ulnar variance. Scapho id as well as scapholunate distance appear unremarkable. Bone density is normal. No osseous lesions . No erosions. No radiopaque body. IMPRESSION: No significant radiographic findings in the right wrist. No significant change compared to 2. DATA REPOSITORY: RADIATION DOSE DELIVERED:
== END 2021-07-30 10:14 | disposition home or self-care (01) ==
LOC: DIORS 10:14
PROVIDERS: PCP Family Medicine; Referring Provider Family Medicine; Visit Provider Physician Assistant
DX: S69.81XA Other specified injuries of right wrist, hand and finger(s), initial encounter (principal); X58.XXXA Exposure to other specified factors, initial encounter
CPT/HCPCS: 73110

== ENCOUNTER 2021-09-03 10:27 | Outpatient (CLI) | payer BC, SELFPAY ==
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
== END 2021-09-03 10:28 | disposition home or self-care (01) ==
LOC: DIORS 10:28
PROVIDERS: PCP Nurse Practitioner Family; Referring Provider Nurse Practitioner Family; Visit Provider Student in an Organized Health Care Education/Training Program
DX: M25.531 Pain in right wrist (principal)
CPT/HCPCS: 73110

== ENCOUNTER → 2022-01-29 15:10 | Outpatient (CLI) | payer BC, SELFPAY ==
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
== END ==
PROVIDERS: PCP Nurse Practitioner Family; Visit Provider Physician Assistant Medical
DX: M79.641 Pain in right hand (principal)
CPT/HCPCS: 73130

== ENCOUNTER 2023-02-24 08:48 | Outpatient (REF) | payer BC, SELFPAY ==
--- NOTE | 2023-02-24 08:20 | PAPFT_PTH ---
PATIENT: Shirley Drew LOC: [facility] U#:[id number] AGE/SX: 27/F ROOM: RE02/24/[address]: Radha Westbrook NP : 1995 BED: DIS: 02/24/2023 SPEC #: [id number] RECD: 02/24/23 12:59 STATUS: KAVIN REQ #: [id number] ELDON: 02/24/23 08:[address]: Radha Westbrook NP DEPT: [facility] Cytology RECD BY: Jia Fong ENTERED: 02/24/23 12:59 SP TYPE: PAPFT OTHR DR: Inder Duncan NP Tissues: 1 - CX/ENDOCX FOR PAP SMEARS Procedures: PAP THIN PREP/[facility] Screening Comments: [id number]
== END 2023-02-24 08:49 | disposition home or self-care (01) ==
LOC: LBN 08:48
PROVIDERS: PCP Nurse Practitioner Family; Visit Provider Nurse Practitioner Women's Health
DX: Z12.4 Encounter for screening for malignant neoplasm of cervix (principal)
CPT/HCPCS: 88142

== ENCOUNTER 2023-06-25 02:56 | Outpatient (CLI) | payer BC, SELFPAY ==
[2023-06-25 16:12] LABS: Anion Gap 6.9 mmol/L (3-11); BUN 14 mg/dL (7-18); CO2 29.1 mmol/L (21.0-32.0); CREATININE 0.8 mg/dL (0.55-1.02); Calcium 9.2 mg/dL (8.5-10.1); Calculated LDL 93 mg/dL (<100); Chloride 104 mmol/L (98-107); Cholesterol 177 mg/dL (<200); Glucose 176 mg/dL (74-106); HDL Cholesterol 56 mg/dL (40-60); Potassium 3.7 mmol/L (3.5-5.1); Sodium 140 mmol/L (136-145); TSH (W/Ref FT4) 1.46 uIU/mL (0.36-3.74); Triglyceride 142 mg/dL (<150)
== END 2023-06-25 02:57 | disposition home or self-care (01) ==
PROVIDERS: PCP Nurse Practitioner Family; Visit Provider Nurse Practitioner Family
DX: Z00.00 Encounter for general adult medical examination without abnormal findings (principal)
CPT/HCPCS: 36415; 80048; 80061; 84443

== ENCOUNTER 2023-07-01 01:45 | Outpatient (CLI) | payer BC, SELFPAY ==
[2023-07-01 11:55] LABS: Hemoglobin A1C 4.9 % (<5.7)
== END 2023-07-01 01:46 | disposition home or self-care (01) ==
PROVIDERS: PCP Nurse Practitioner Family; Visit Provider Nurse Practitioner Family
DX: R73.09 Other abnormal glucose (principal)
CPT/HCPCS: 36415; 83036